=== PATIENT | female | born 1950 | race Caucasian/White ===

== ENCOUNTER → 2023-06-09 | Outpatient (CLI) | payer SELFPAY ==
[~2023-06-09] MED LIST: ASPIRIN 81M81 MG/TA2 PO; ATIVAN 0.50.5 MG/TAB PO; BUMEX2 MG PO; CENTRUM CHEWAB1 EAC4 PO; COUMADIN 2MG2 MG/TAB PO; DOXYCYCLINE 10100 MG; FERROUS SU325 MG/TAB PO; FOLIC ACID 11 MG/TA1 PO; K-DUR20 MEQ PO; LASIX 40MG TABL40 MG PO; LIPITOR 40MG TA40 MG PO; LOPRESSOR 225 MG/TAB PO; MASON NATURAL2000 IU PO; SYNTHROID0.088 MG/T PO; TENORMIN 2525 MG/TAB PO; TYLENOL 500MG500 MG PO; ZOFRAN ODT8 MG PO; ZOLOFT 25MG25 MG PO
[2023-06-09 14:49] LABS: INR 11.3 (0.8-3.0); PROTHROMBIN TIME 115.6 SECONDS (9.7-12.8)
== END ==
LOC: COL.LAB 13:39
PROVIDERS: Internal Medicine Interventional Cardiology
DX: I48.0 Paroxysmal atrial fibrillation (principal); Z86.73 Personal history of transient ischemic attack (TIA), and cerebral infarction without residual deficits

== ENCOUNTER 2023-06-11 10:52 | Inpatient (IN) | payer MEDICAID ==
[~2023-06-11] VITALS: Ht 162.6 cm; Wt 71.0 kg
[~2023-06-11 10:52] MED LIST changes: -ASPIRIN 81M81 MG/TA2 PO; -BUMEX2 MG PO; -FERROUS SU325 MG/TAB PO; -FOLIC ACID 11 MG/TA1 PO; -LOPRESSOR 225 MG/TAB PO
[2023-06-11 11:45] LABS: BASO % 0.3 % (0.0-2.0); EOS # 0.1 K/mm3 (0.0-0.7); EOS % 0.5 % (0.0-4.0); GRAN # 11.9 K/mm3 (1.4-6.5); HEMOGLOBIN 10.7 g/dl (12.5-16.0); LYMPH # 0.7 K/mm3 (1.2-3.4); LYMPH % 5.3 % (20.0-51.0); MEAN CELL VOLUME 92 fl (80.0-100.0); MEAN CORPUSCULAR HEMOGLOBIN 29 pg (27-31); MEAN CORPUSCULAR HGB CONC 31 g/dl (33.0-37.0); MEAN PLATELET VOLUME 9.3 fl (7.4-10.4); MONO # 0.7 K/mm3 (0.1-0.6); MONO % 5.3 % (1.7-9.3); PLATELET COUNT 284 K/mm3 (130-400); RED BLOOD COUNT 3.74 M/mm3 (4.10-5.30); REDCELL DISTRIBUTION WIDTH-CV 19.4 % (11.5-14.5)
[2023-06-11 11:47] LABS: HEMATOCRIT 34.3 % (37.0-47.0)
[2023-06-11 12:01] LABS: ALBUMIN 2.9 gm/dL (3.4-4.8); CALCIUM 9.7 mg/dL (8.4-10.2); CREATININE, serum 0.84 mg/dL (0.57-1.11); POTASSIUM 3.9 mmol/L (3.5-4.5); TOTAL PROTEIN 7.7 gm/dL (6.2-8.1)
[2023-06-11 12:08] LABS: TROPONIN-I 0.026 ng/mL (0.00-0.033)
[2023-06-11 12:08] LABS: COLLECTION METHOD CLEAN CATCH
[2023-06-11 12:11] VITALS: BP 119/77; PULSE 88
[2023-06-11 12:20] LABS: PROTHROMBIN TIME 112.9 SECONDS (9.7-12.8)
[2023-06-11 12:31] LABS: URINE APPEARANCE Clear (CLEAR/HAZY); URINE COLOR Yellow (YELLOW); URINE PROTEIN(semi-quant) TRACE (NEGATIVE)
[2023-06-11 12:32] LABS: URINE BLOOD TRACE-INTACT (NEGATIVE); URINE GLUCOSE Negative (NEGATIVE); URINE KETONE Negative (NEGATIVE); URINE NITRATE Negative (NEGATIVE); URINE UROBILINOGEN 0.2 E.U/dL (0.2-1.0)
[2023-06-11 12:33] LABS: URINE BACTERIA Moderate /hpf (NONE SEEN)
[2023-06-11] MEDS ORDERED: ASPIRIN 81M81 MG/TA2 PO (13:17)
[2023-06-11] MEDS ORDERED: BUMEX2 MG PO (13:45)
[2023-06-11] MEDS ORDERED: LOPRESSOR 225 MG/TAB PO (13:47)
[2023-06-11] MEDS ORDERED: FOLIC ACID 11 MG/TA1 PO (13:48)
[2023-06-11] MEDS ORDERED: FERROUS SU325 MG/TAB PO (13:49)
[2023-06-11 14:54] VITALS: BP 124/75; PULSE 77
--- NOTE | 2023-06-11 15:00 | NUR ---
PATIENT ARRIVED FROM ED IN STABLE CONDITION. CARDIZEM DRIP INFUSING AT 5CC/HR. PATINET DENIES ANY NEEDS OR COMPLAINTS AT THIS TIME.
--- NOTE | 2023-06-11 15:55 | NUR ---
[place] SKIN ASSESSMENT COMPLETE WITH ANOTHER RN. PATIENT AWAKE AND ALERT, RESTING IN BED, CARDIZEM DRIP INFUSING. PATIENT VSS. NSR ON TELEMETRY. AWARE.
--- NOTE | 2023-06-11 16:16 | NUR ---
RN ATTEMPTED CALL PATIENTS . BUSY LINE.
[2023-06-11 17:00] VITALS: BP_SYST 124
[2023-06-11 19:15] VITALS: BP 111/73; PULSE 85; TEMP 98.2
[2023-06-11 20:20] VITALS: BP_SYST 111
[2023-06-11 23:34] VITALS: BP 112/64; PULSE 84; TEMP 98.1
[2023-06-12] VITALS (13 sets, daily range): BP systolic 104–128; BP diastolic 65–75; PULSE 66–91; TEMP 97.9–98.4
--- NOTE | 2023-06-12 05:20 | NUR ---
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 PT HAD NOTABLE SOB WITH AMBULATION. O2 SAT AT 91%. PT PLACED ON 2L OF O2 VIA NC FOR COMFORT PER PT REQUEST. SECOND IV SITE PLACED TO LW DUE TO FFP ORDER PLACED FOR ELEVATED INR. TYPE AND SCREEN PENDING OF NOW. PT DENIED GENERAL PAIN, CHEST PAIN, PALPITATIONS, N,V,D OR DIZZINESS. PT EXPRESSED NO ADDITIONAL NEEDS AT THIS TIME. CALL LIGHT WITHIN REACH.
[2023-06-12 05:29] LABS: MEAN CELL VOLUME 89 fl (80.0-100.0); MEAN CORPUSCULAR HGB CONC 32 g/dl (33.0-37.0); PLATELET COUNT 227 K/mm3 (130-400); RED BLOOD COUNT 3.28 M/mm3 (4.10-5.30); REDCELL DISTRIBUTION WIDTH-CV 18.9 % (11.5-14.5)
[2023-06-12 05:30] LABS: HEMATOCRIT 29.3 % (37.0-47.0); HEMOGLOBIN 9.3 g/dl (12.5-16.0); MEAN CORPUSCULAR HEMOGLOBIN 28 pg (27-31)
[2023-06-12 05:44] LABS: CALCIUM 8.5 mg/dL (8.4-10.2); CREATININE, serum 0.66 mg/dL (0.57-1.11); POTASSIUM 3.3 mmol/L (3.5-4.5)
[2023-06-12 07:09] LABS: INR 12.3 (0.8-3.0)
--- NOTE | 2023-06-12 09:00 | NUR ---
PATIENT RESTING IN BED UPON ENTERING ROOM. MORNING MEDICATIONS GIVEN. SHIFT ASSESSMENT COMPLETED. PATIENT COMPLAINING OF FEELING ANXIOUS, DR. ROBLES NOTIFIED, AWAITING ORDERS. DENIES ANY PAIN OR NEEDS. CURRENTLY ON 2L O2 VIA NC. UPDATED PATIENT ON PLAN OF CARE. CALL LIGHT WITHIN REACH, WILL CONTINUE TO MONITOR.
--- NOTE | 2023-06-12 12:45 | NUR ---
PATIENT COMPLAINING OF SOB, CURRENTLY ON 2L VIA NC, O2 SATURATION IN THE 90s. GIVEN PRN ANXIETY MEDICATION PER eMAR. WILL CONTINUE TO MONITOR.
--- NOTE | 2023-06-12 15:00 | NUR ---
SW met with patient to complete intake. Patient provides she lives with daughter Vivian Arias [phone] who is also appointed DPOA of Patient utilizes a walker, is independent with ADL's and does not utilize home health services at this time. PCP is established at [facility] per spouse who was present during intake Simon Pate [phone] and information confirmed with patient. [facility]. Patient states she plans to return to living with daughter upon dc. [facility]LA will continue to follow. DC plan: home
[2023-06-12 18:28] LABS: PROTHROMBIN TIME 52.7 SECONDS (9.7-12.8)
[2023-06-13] VITALS (11 sets, daily range): BP systolic 103–120; BP diastolic 54–76; PULSE 52–86; TEMP 97.6–98.5
--- NOTE | 2023-06-13 05:20 | NUR ---
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 THE RN HEMATOLOGY CALLED AND STATES PT WENT INTO AN A-FLUTTER RHYTHM. HOSPITALIST CALLED. EKG ORDERED. EKG SHOWED A-FLUTTER. PT ASYMPTOMATIC. VSS. NO NEW ORDERS ADDED. WILL CONTINUE TO MONITOR. PT HAD SOME ANXIETY TONIGHT, BUT DID NOT WANT THE HYDROXYZINE, FEELING IT DIDN'T WORK WELL THE ATIVAN. HOSPITALIST CALLED. ATIVAN NOT APPROVED FOR PT TONIGHT. PT REQUESTED THE HYDROXYZINE, FEELING THAT WAS BETTER THAN NOTHING. PT DENIED GENERAL PAIN, CHEST PAIN, PALPITATIONS, N,V,D OR DIZZINESS. PT CONTINUES TO BE NOTABLY WINDED WITH ABULATION. FALL PRECAUTIONS IN PLACE. CALL LIGHT WITHIN REACH.
[2023-06-13 06:31] LABS: MEAN CELL VOLUME 88 fl (80.0-100.0); MEAN CORPUSCULAR HGB CONC 32 g/dl (33.0-37.0); MEAN PLATELET VOLUME 10.2 fl (7.4-10.4); PLATELET COUNT 212 K/mm3 (130-400); RED BLOOD COUNT 3.52 M/mm3 (4.10-5.30)
[2023-06-13 06:32] LABS: HEMOGLOBIN 9.9 g/dl (12.5-16.0); MEAN CORPUSCULAR HEMOGLOBIN 28 pg (27-31)
--- NOTE | 2023-06-13 08:29 | NUR ---
INFORMED PATIENT BP OF 104/54. THERE IS AN ORDER FOR BUMEX 2MG PO, IS THAT OK TO GIVE? PER HOLD THIS AM ODSE OF BUMEX FOR NOW. ALSO INFORMED PATIENT FEELS SOME SOB AND STATED ATIVAN HELPS HER BEST. SHE HAS NO PRN. SHE WAS GIVEN A ONE TIME DOSE OF 1MG YESTERDAY AROUND 1300. PER IT IS OK TO GIVE HER 1MG PO ATIVAN NOW.
[2023-06-13 14:13] LABS: INR 1.8 (0.8-3.0)
--- NOTE | 2023-06-13 17:36 | NUR ---
PLANT EQUIPMENT ENGINEER CALLED THIS RN TO INFORM ME THAT PATIENTS CXR LOOKED "OFF" AND THAT SHE WAS GOING TO CALL THE RADIOLOGIST TO READ IT SOON. PER RAQDIOLOGY TECH THIS RN SHOULD CALL OT INFORM THE PHYSICIAN TO TAKE A LOOK AT THE HONEY LIQUEFIER. THIS RN INFORMED DR ROGERS OF THE ABOVE. PER DR ROGERS HE WILL CALL THIS RN IF ANAYTHING FURTHER IS NEEDED.
--- NOTE | 2023-06-13 18:53 | NUR ---
PATIENT STATED SHE FEELS LIKE HER SOB HAS EASED UP. PATIENT NO LONGER HAS LABORED BREATHGIN. SHE IS AWAKE AND ALERT,, SITTING UP IN BED.. PATIENTS CALL LIGHT WITHIN REACH. PATIENT DENIES ANY PAIN, NEEDS OR COMPLAINTS AT THIS TIME.
[2023-06-14] VITALS (11 sets, daily range): BP systolic 93–120; BP diastolic 53–78; PULSE 65–85; TEMP 97.2–98.7
[2023-06-14 06:32] LABS: MEAN CELL VOLUME 90 fl (80.0-100.0); MEAN CORPUSCULAR HGB CONC 31 g/dl (33.0-37.0); MEAN PLATELET VOLUME 9.7 fl (7.4-10.4); PLATELET COUNT 244 K/mm3 (130-400); RED BLOOD COUNT 3.35 M/mm3 (4.10-5.30); REDCELL DISTRIBUTION WIDTH-CV 18.7 % (11.5-14.5)
[2023-06-14 06:35] LABS: INR 1.7 (0.8-3.0)
[2023-06-14 06:37] LABS: HEMOGLOBIN 9.4 g/dl (12.5-16.0); MEAN CORPUSCULAR HEMOGLOBIN 28 pg (27-31)
--- NOTE | 2023-06-14 09:00 | NUR ---
PATIENT RESTING IN BED UPON ENTERING ROOM. MORNING MEDICATIONS GIVEN. SHIFT ASSESSMENT COMPLETED. PATIENT DENIES ANY PAIN, ENDORSES SOME FEELINGS OF SOB AND ANXIETY. ONE TIME DOSE OF ATIVAN ADMINISTERED PER eMAR. CURRENTLY ON 2L O2 VIA NC. PLANS FOR THORACENTESIS TODAY, CONSENT OBTAINED AND PLACED ON CHART. NO OTHER NEEDS AT THIS TIME. CALL LIGHT WITHIN REACH. WILL CONTINUE TO MONITOR.
--- NOTE | 2023-06-14 09:02 | NUR ---
Physics Department Chair collaborated with Treatment Team during rounding to assess Patient for discharge readiness. Patient will have fluid drained today and can potentially discharge if improved after.
--- NOTE | 2023-06-14 12:30 | NUR ---
PATIENT RETURNED FROM THORACENTESIS AT THIS TIME. FEELS LIKE BREATHING HAS IMPROVED, REMAINS ON 2L O2 VIA NC.
[2023-06-14 12:49] LABS: PLEURAL FLUID APPEARANCE BLOODY; PLEURAL FLUID COLOR RED; PLEURAL FLUID RBC 301000 /mm3 (0-0); PLEURAL FLUID WBC 1188 /mm3
--- NOTE | 2023-06-14 12:57 | NUR ---
PATIENTS DAUGHTER ASKED THIS RN IF DR. RUIZ COULD TAKE A LOOK AT PATIENTS MID CHEST INCISION SINCE THEY HAVE A CARDIOTHORACIC APPOINTMENT LATER THIS WEEK TO CHECK THE SITE. THIS RN CONTACTED SATHISH AGUIRRE RN AND NOTIFIED HER, SHE STATES THAT DR. RUIZ CAN TAKE A LOOK BEFORE THE PATIENT DISCHARGES. THIS RN CONTACTED DR. ROGERS TO UPDATED HIM ON PATIENTS RETURN FROM THORACENTESIS, HE STATES PATIENT WILL LIKELY STAY OVERNIGHT AND POSSIBLY DISCHARGE TOMORROW. JLUIS BOWER UPDATED ON THIS PLAN OF CARE.
--- NOTE | 2023-06-14 21:27 | NUR ---
Patient awake, alert and oriented. States she feels like she is breathing much better after the thoracentesis today. Weaned to room air, O2 sat 94-96% on room air. Denies pain or nausea. In bed, bed in the lowest position with call light within reach. Denies further needs at this time. Bed alarm on.
[2023-06-15 02:28] VITALS: BP 106/59; PULSE 66; TEMP 97.9
[2023-06-15 03:09] VITALS: BP_SYST 106
--- NOTE | 2023-06-15 06:41 | NUR ---
Patient able to rest well throughout the night. Remained on room air for the entire night. Denies shortness of breath or pain. Bed alarm on, bed in lowest position with call light within reach.
[2023-06-15 06:52] LABS: BASO % 0.5 % (0.0-2.0); EOS # 0.3 K/mm3 (0.0-0.7); GRAN # 4.3 K/mm3 (1.4-6.5); GRAN % 68.1 % (42.2-75.2); LYMPH # 1.1 K/mm3 (1.2-3.4); LYMPH % 17.2 % (20.0-51.0); MEAN CELL VOLUME 90 fl (80.0-100.0); MEAN CORPUSCULAR HGB CONC 31 g/dl (33.0-37.0); MEAN PLATELET VOLUME 9.5 fl (7.4-10.4); MONO # 0.5 K/mm3 (0.1-0.6); MONO % 7.9 % (1.7-9.3); PLATELET COUNT 262 K/mm3 (130-400); RED BLOOD COUNT 3.48 M/mm3 (4.10-5.30); REDCELL DISTRIBUTION WIDTH-CV 18.9 % (11.5-14.5)
[2023-06-15 06:53] LABS: HEMATOCRIT 31.4 % (37.0-47.0); HEMOGLOBIN 9.7 g/dl (12.5-16.0); INR 1.9 (0.8-3.0); MEAN CORPUSCULAR HEMOGLOBIN 28 pg (27-31); PROTHROMBIN TIME 20.9 SECONDS (9.7-12.8)
[2023-06-15 07:12] LABS: CALCIUM 8.8 mg/dL (8.4-10.2); CREATININE, serum 0.74 mg/dL (0.57-1.11); MAGNESIUM 1.8 mg/dL (1.6-2.6); POTASSIUM 3.3 mmol/L (3.5-4.5)
[2023-06-15 08:18] VITALS: BP 108/54; PULSE 81; TEMP 97.6
--- NOTE | 2023-06-15 08:25 | NUR ---
Patient alert and oriented x4 this morning. Shift assessment complete. Right side lung sounds noted to have fine crackles, crackles improved some after coughing. Incision to chest is CDI, bruising noted. IV to RAC noted to be draining and dressing dirty. L wrist IV patent. RAC IV discontinued with no complications. +1 edema noted to bilateral lower extremities. Patient tolerating food well. Denies pain at this time. Complains of constipation from iron supplement. Currently in bed with call light in reach.
--- NOTE | 2023-06-15 09:25 | NUR ---
Drug Safety Specialist collaborated with Treatment Team during rounding to assess Patient for discharge readiness. Patient needs continued medical assessment at this time. Drug Safety Specialist met with Patient and at bedside to discuss discharge planning. Patient continues to intend on discharging home. SW discussed option of Home Health for discharge services. Patient would like to resume OP PT when she regains strength after discharging home and does not want PT coordinated directly when discharged. Discharge Plan: Home
[2023-06-15 11:33] VITALS: BP 112/73; PULSE 82; TEMP 97.7
--- NOTE | 2023-06-15 12:37 | NUR ---
Patient resting in bed at this time. Denies pain or discomfort. 1 bag of magnesium ran through L wrist IV and complete. Miralax administered due to complaints of constipation. All needs met at this time.
--- NOTE | 2023-06-15 13:34 | NUR ---
Patient called complaining of increasing anxiety. PRN Ativan tablet administered. Patient states it is anxiety inducing laying in hospital and just wondering when she can go home. States her visited earlier and further increased anxiety because he had questions she could not answer. Patient comforted and assisted with TV to help keep her mind off of things.
[2023-06-15 16:20] VITALS: BP 110/63; PULSE 89; TEMP 97.4
[2023-06-15] MEDS ORDERED: LOPRESSOR 225 MG/TAB PO (16:41)
--- NOTE | 2023-06-15 17:33 | NUR ---
Discharge instructions discussed with patient including follow-up appointments, medication changes, education packets, and incision care. Patient verbalized understanding. Patient noted to not have PCP, patient states she is going to be going to [facility]. IV discontinued to L wrist with no complications. Telemetry off. Patient escorted out by staff and via wheelchair.
== END 2023-06-15 17:30 | disposition home or self-care (01) | DRG 291 ==
LOC: COL.ER 10:52 → MEDICAL 13:47 → EDBEDREQ 14:26 → EDBEDREQTM 14:26 → MEDICAL 21:00
PROVIDERS: Internal Medicine; Nurse Practitioner Primary Care; Physician Assistant; ADMIT Internal Medicine
PROC: 0W993ZX Drainage of Right Pleural Cavity, Percutaneous Approach, Diagnostic (ICD-10-PCS; principal; 2023-06-14)
DX: I11.0 Hypertensive heart disease with heart failure (principal); I50.33 Acute on chronic diastolic (congestive) heart failure; J96.01 Acute respiratory failure with hypoxia; I48.20 Chronic atrial fibrillation, unspecified; I48.92 Unspecified atrial flutter; E78.5 Hyperlipidemia, unspecified; E03.9 Hypothyroidism, unspecified; E87.6 Hypokalemia; D72.829 Elevated white blood cell count, unspecified; I08.2 Rheumatic disorders of both aortic and tricuspid valves; E83.42 Hypomagnesemia; D64.9 Anemia, unspecified; R79.1 Abnormal coagulation profile; T45.515A Adverse effect of anticoagulants, initial encounter; F41.9 Anxiety disorder, unspecified; Z85.3 Personal history of malignant neoplasm of breast; Z90.49 Acquired absence of other specified parts of digestive tract; Z90.13 Acquired absence of bilateral breasts and nipples; Z88.8 Allergy status to other drugs, medicaments and biological substances; Z79.01 Long term (current) use of anticoagulants; Z95.4 Presence of other heart-valve replacement; Z79.899 Other long term (current) drug therapy; Z79.82 Long term (current) use of aspirin; Z79.890 Hormone replacement therapy
CPT/HCPCS: J3475

== ENCOUNTER 2023-08-20 10:30 | Outpatient (RCR) | payer SELFPAY ==
[~2023-08-20 10:30] MED LIST changes: +ASPIRIN 81M81 MG/TA2 PO; +BUMEX2 MG PO; +FERROUS SU325 MG/TAB PO; +FOLIC ACID 11 MG/TA1 PO; +LOPRESSOR 225 MG/TAB PO
== END 2023-08-22 | disposition home or self-care (01) ==
LOC: MKS.ESL.PT
DX: Z98.890 Other specified postprocedural states (principal)

== ENCOUNTER 2023-09-09 12:45 | Outpatient (RCR) | payer SELFPAY | END 2023-09-22 | disposition home or self-care (01) | LOC: MKS.ESL.PT | DX: Z95.2 Presence of prosthetic heart valve (principal) ==

== ENCOUNTER → 2023-09-10 | Outpatient (CLI) | payer SELFPAY ==
[~2023-09-10] MED LIST changes: +Barium Sulfate 2% Oral Susp 450 ML X 2 BOTTLES PO SCH; +Iohexol 300 - 100 ML VIAL IV ONE; +NS 100 ML IV SCH
== END ==
LOC: COL.RAD 09:26
DX: I51.7 Cardiomegaly (principal); E04.1 Nontoxic single thyroid nodule; C50.211 Malignant neoplasm of upper-inner quadrant of right female breast; N20.0 Calculus of kidney
CPT/HCPCS: Q9967

== ENCOUNTER 2023-10-11 08:23 | Outpatient (RCR) | payer SELFPAY ==
[~2023-10-11 08:23] MED LIST changes: -Barium Sulfate 2% Oral Susp 450 ML X 2 BOTTLES PO SCH; -Iohexol 300 - 100 ML VIAL IV ONE; -NS 100 ML IV SCH
== END 2023-10-11 08:24 ==
LOC: MKS.ESL.PT 08:23
DX: Z95.2 Presence of prosthetic heart valve (principal)